=== PATIENT | female | born 1975 | race Caucasian/White ===

== ENCOUNTER 2022-08-19 18:37 | Emergency (ER) | payer MEDICAID ==
[~2022-08-19] VITALS: Ht 162.6 cm; Wt 80.3 kg
[2022-08-19] MEDS ORDERED: PRAV40TA3 PO (18:47)
[2022-08-19] MEDS ORDERED: ERGO500040 PO (18:47)
--- NOTE | 2022-08-19 18:54 | NUR ---
Dr Chahal at the bedside for MSE.
--- NOTE | 2022-08-19 19:13 | NUR ---
Got report from Betty RON.
[2022-08-19 19:18] LABS: HEMATOCRIT 39.8 % (31.2-41.9); MEAN CORPUSCULAR HEMOGLOBIN 28.8 uug (24.7-32.8); MEAN CORPUSCULAR VOLUME 85.9 fL (75.5-95.3); PLATELET COUNT (AUTO) 211 K/uL (179-408)
[2022-08-19 19:28] LABS: *URINE HCG, QUAL NEG (NEGATIVE)
[2022-08-19 19:29] LABS: CARBON DIOXIDE 26 mmol/L (21-32); CHLORIDE 105 mmol/L (98-107); CREATININE 0.9 mg/dL (0.6-1.3); GLUCOSE 103 mg/dL (74-106); POTASSIUM 3.9 mmol/L (3.5-5.1); UREA NITROGEN, BLOOD 23 mg/dL (7-18)
[2022-08-19 19:29] LABS: *BILIRUBIN,URIN NEGATIVE (NEGATIVE); *CLARITY,URINE CLEAR (CLEAR); *COLOR,URINE YELLOW (YELLOW); *KETONES,URINE NEGATIVE (NEGATIVE); *UROBILINOGEN,URINE 0.2 E.U./dl (NORMAL); LEUKOCYTE ESTERASE ,URINE 1+ (NEGATIVE); NITRITE, URINE NEGATIVE (NEGATIVE); UGLUCOSE NEGATIVE (NEGATIVE)
[2022-08-19 19:34] LABS: ALANINE AMINOTRANSFERASE 33 U/L (14-59); ALKALINE PHOSPHATASE 46 U/L (50-136); ASPARTATE AMINOTRANSFERASE 11 U/L (15-37); BILIRUBIN,DIRECT < 0.1 mg/dL (0.0-0.2); BILIRUBIN,TOTAL 0.2 mg/dL (0.2-1.0); LIPASE 124 U/L (73-393); TOTAL PROTEIN, SERUM 6.8 g/dL (6.4-8.2)
[2022-08-19 19:38] LABS: *BLOOD, URINE TRACE (NEGATIVE)
[2022-08-19] MEDS ORDERED: SWABABLE VALVE TRANSFER SET EA MC ONE (19:51)
[2022-08-19] MEDS ORDERED: IOHEXOL 300MG/ML 100 ML INFUS..BTL ONE (19:51)
[2022-08-19] MEDS ORDERED: IV NORMAL SALINE 250 ML IV ONE (19:51)
--- NOTE | 2022-08-19 22:00 | NUR ---
Patient discharged to home in stable condition. Written and verbal after care instructions given. Patient verbalizes understanding of instructions. Stressed follow up or return to ER for worsening s/s. Patient walked out with steady gait.
[2022-08-19 22:26] VITALS: BP 116/62
[2022-08-19 22:54] LABS: BACTERIA,URINE FEW /HPF (NONE SEEN); SQUAMOUS EPITHELIAL CELL,UR FEW /HPF (NONE SEEN)
== END 2022-08-19 22:10 | disposition home or self-care (01) ==
LOC: ER 18:37
DX: R10.12 Left upper quadrant pain (principal); E78.5 Hyperlipidemia, unspecified; Z79.899 Other long term (current) drug therapy
CPT/HCPCS: 99285; 74177; 80076; 80048; 81001; 83036; 84703; 83690; 85025; 36415; 87040; Q9967; A4663